=== PATIENT | female | born 1985 | race African-American/Black ===

== ENCOUNTER 2022-05-04 19:33 | Inpatient (IN) | payer MEDICAID, OTHER ==
[~2022-05-04] VITALS: Ht 175.3 cm; Wt 119.1 kg
[2022-05-04 20:07] LABS: BASOPHILS % (AUTO) 0.9 % (0.0-2.0); EOSINOPHILS % (AUTO) 0.7 % (1.0-6.0); HEMATOCRIT 35.2 % (36-46); HEMOGLOBIN 11.1 g/dL (12.0-16.0); LYMPHOCYTES # (AUTO) 4.3 K/uL (1.0-4.8); LYMPHOCYTES % (AUTO) 27.2 % (22.0-44.0); MEAN CORPUSCULAR HEMOGLOBIN 20.8 pg (26.0-34.0); MEAN CORPUSCULAR HGB CONC 31.7 G/dL (31.0-37.0); MEAN CORPUSCULAR VOLUME 66 fL (80-100); MONOCYTES # (AUTO) 0.9 K/uL (0.1-1.0); MONOCYTES % (AUTO) 5.6 % (2.0-9.0); NEUTROPHILS # (AUTO) 10.4 K/uL (1.8-7.7); NEUTROPHILS % (AUTO) 65.6 % (40.0-70.0); PLATELET COUNT (AUTO) 281 K/uL (150-450); RED BLOOD CELL COUNT(AUTO) 5.36 MIL/uL (4.00-5.20)
[2022-05-04 20:14] LABS: ANION GAP 10 mmol/L (8-16); CALCIUM, TOTAL 9.7 mg/dL (8.8-10.5); CARBON DIOXIDE 26 mmol/L (22-29); CHLORIDE 103 mmol/L (98-107); CREATININE 0.89 mg/dL (0.60-1.30); GLOMERULAR FILTR. RATE CALC > 60 mL/min (>60); GLUCOSE,RANDOM 162 mg/dL (70-110); POTASSIUM 3.7 mmol/L (3.5-5.1); SODIUM SERUM 139 mmol/L (136-145); UREA NITROGEN, BLOOD 9 mg/dL (7-18)
[2022-05-04 20:16] LABS: AMPHET/METH SCREEN,URINE NEGATIVE (NEGATIVE); BARBITURATE SCREEN, URINE NEGATIVE (NEGATIVE); BENZODIAZEPINES SCREEN,URINE NEGATIVE (NEGATIVE); CANNABINOID SCREEN,URINE NEGATIVE (NEGATIVE); COCAINE SCREEN,URINE NEGATIVE (NEGATIVE); METHADONE SCREEN, URINE NEGATIVE (NEGATIVE); OPIATE SCREEN,URINE NEGATIVE (NEGATIVE)
[2022-05-04 20:18] LABS: PHENCYCLIDINE SCREEN,URINE NEGATIVE (NEGATIVE)
[2022-05-04 20:22] LABS: ALANINE AMINOTRANSFERASE 27 U/L (12-78); ALBUMIN 3.9 g/dL (3.4-5.0); ALKALINE PHOSPHATASE 80 U/L (46-116); ASPARTATE AMINOTRANSFERASE 13 U/L (15-37); BILIRUBIN,TOTAL 0.4 mg/dL (0.1-1.0)
[2022-05-05 00:34] LABS: COVID AG,FIA SOURCE NASAL SWAB
[2022-05-05 00:42] LABS: APPEARANCE,URINE CLEAR (CLEAR); BILIRUBIN,URINE NEGATIVE (NEGATIVE); GLUCOSE, URINE (UA) NEGATIVE (NEGATIVE); KETONES,URINE NEGATIVE (NEGATIVE); LEUKOCYTE ESTERASE ,URINE NEGATIVE (NEGATIVE); NITRATE,URINE NEGATIVE (NEGATIVE); OCCULT BLOOD,URINE NEGATIVE (NEGATIVE); PH,URINE 5.5 (5.0-8.0); PROTEIN,URINE NEGATIVE (NEGATIVE); SPECIFIC GRAVITIY, URINE 1.004 (1.003-1.030); UROBILINOGEN,URINE <=1.0 mg/dL (<=1.0)
[2022-05-05 02:55] VITALS: BP 140/80
[2022-05-05 03:07] VITALS: BP 140/80
[2022-05-05 03:18] VITALS: BP 140/80
[2022-05-05] MEDS ORDERED: LOPERAMIDE HCL 2 MG CAPSULE PO PRN (06:30)
[2022-05-05] MEDS ORDERED: ACETAMINOPHEN 325 MG TABLET PO PRN (06:30)
[2022-05-05] MEDS ORDERED: PETROLATUM,WHITE 28 GM JELLY TP PRN (06:30)
[2022-05-05] MEDS ORDERED: ONDANSETRON HCL 4 MG TABLET PO PRN (06:30)
[2022-05-05] MEDS ORDERED: DOCUSATE SODIUM 100 MG CAPSULE PO PRN (06:30)
[2022-05-05] MEDS ORDERED: MAG HYDROX/AL HYDROX/SIMETH ES 30 ML SUSPENSION UDCUP PO PRN (06:30)
[2022-05-05] MEDS ORDERED: GuaiFENesin/D-METHORPHAN [SUGAR-FREE] 200-20MG/10 ML SYRUP UDCUP PO PRN (06:30)
[2022-05-05] MEDS ORDERED: NICOTINE 14 MG/24 HOUR PATCH TD PRN (06:30)
[2022-05-05] MEDS ORDERED: MAGNESIUM HYDROXIDE SUSPENSION 30 ML UDCUP PO PRN (06:30)
[2022-05-05] MEDS ORDERED: CloNIDine HCL 0.1 MG TABLET PO PRN (06:30)
[2022-05-05] MEDS ORDERED: ALBUTEROL SULFATE HFA 90 MCG/PUFF 8 GM INHALER IH PRN (06:30)
[2022-05-05] MEDS: MetFORMIN HCL 500 MG TABLET PO SCH ×2 (06:59→17:11)
[2022-05-05 08:26] VITALS: BP 106/60
[2022-05-05 08:27] VITALS: BP 106/60
[2022-05-05] MEDS: IBUPROFEN 400 MG TABLET PO PRN (09:39)
[2022-05-05] MEDS: LORazepam 2 MG TABLET PO PRN (09:40)
[2022-05-05] MEDS: HALOPERIDOL 5 MG TABLET PO PRN (09:40)
[2022-05-05 16:09] VITALS: BP 133/72
[2022-05-05] MEDS: DIVALPROEX SODIUM 500 MG DR TABLET PO SCH (17:08)
[2022-05-05] MEDS: LURASIDONE HCL 60 MG TABLET PO SCH (17:08)
[2022-05-05 18:46] LABS: GLUCOMETER DEV NAME(LOC) 3E.I 2; GLUCOSE,POINT OF CARE 153 MG/DL (70-110)
[2022-05-06] MEDS: MetFORMIN HCL 500 MG TABLET PO SCH ×2 (06:46→16:35)
[2022-05-06] MEDS: LURASIDONE HCL 60 MG TABLET PO SCH ×2 (06:46→16:09)
[2022-05-06 07:01] LABS: GLUCOMETER DEV NAME(LOC) 3E.C; GLUCOSE,POINT OF CARE 134 MG/DL (70-110)
[2022-05-06 08:20] VITALS: BP 130/69
[2022-05-06] MEDS: LORazepam 2 MG TABLET PO PRN (09:23)
[2022-05-06] MEDS: HALOPERIDOL 5 MG TABLET PO PRN (09:23)
[2022-05-06] MEDS: DIVALPROEX SODIUM 500 MG DR TABLET PO SCH ×2 (09:23→16:09)
[2022-05-06 09:35] LABS: HEMOGLOBIN A1C 6.4 % (3.8-5.6)
[2022-05-06 09:46] LABS: CHOL/HDL RATIO 6.3 (3.9-5.7); THYROID STIMULATING HORMONE 1.22 uIU/mL (0.36-3.74)
[2022-05-06] MEDS ORDERED: HALOPERIDOL DECANOATE 100 MG/ML VIAL IM ONE (10:00)
[2022-05-06 16:10] VITALS: BP 127/84
[2022-05-06 16:56] LABS: GLUCOMETER DEV NAME(LOC) 3E.C; GLUCOSE,POINT OF CARE 220 MG/DL (70-110)
[2022-05-06 23:02] VITALS: BP 170/107
[2022-05-06] MEDS: IBUPROFEN 400 MG TABLET PO PRN (23:03)
[2022-05-06] MEDS: ZOLPIDEM TARTRATE 10 MG TABLET PO PRN (23:03)
[2022-05-07] MEDS: LURASIDONE HCL 60 MG TABLET PO SCH ×2 (06:50→16:43)
[2022-05-07] MEDS: MetFORMIN HCL 500 MG TABLET PO SCH ×2 (06:50→16:43)
[2022-05-07 06:51] LABS: GLUCOMETER DEV NAME(LOC) 3E.C; GLUCOSE,POINT OF CARE 121 MG/DL (70-110)
[2022-05-07 08:00] VITALS: BP 131/92
[2022-05-07] MEDS: LORazepam 2 MG TABLET PO PRN ×2 (08:38→16:44)
[2022-05-07] MEDS: DIVALPROEX SODIUM 500 MG DR TABLET PO SCH ×2 (08:38→16:43)
[2022-05-07] MEDS: HALOPERIDOL 5 MG TABLET PO PRN ×2 (08:38→16:44)
[2022-05-07 16:11] LABS: GLUCOMETER DEV NAME(LOC) 3E.C; GLUCOSE,POINT OF CARE 165 MG/DL (70-110)
[2022-05-07 16:52] VITALS: BP 140/91
[2022-05-08] MEDS: LURASIDONE HCL 60 MG TABLET PO SCH ×2 (06:44→16:39)
[2022-05-08] MEDS: MetFORMIN HCL 500 MG TABLET PO SCH ×2 (06:44→16:40)
[2022-05-08 06:46] LABS: GLUCOMETER DEV NAME(LOC) 3E.C; GLUCOSE,POINT OF CARE 129 MG/DL (70-110)
[2022-05-08 08:00] VITALS: BP 139/85
[2022-05-08] MEDS: HALOPERIDOL 5 MG TABLET PO PRN ×2 (08:15→16:40)
[2022-05-08] MEDS: DIVALPROEX SODIUM 500 MG DR TABLET PO SCH ×2 (08:15→16:39)
[2022-05-08] MEDS: LORazepam 2 MG TABLET PO PRN ×2 (08:15→16:40)
[2022-05-08 16:00] VITALS: BP 119/69
[2022-05-08 16:16] LABS: GLUCOMETER DEV NAME(LOC) 3E.C; GLUCOSE,POINT OF CARE 145 MG/DL (70-110)
[2022-05-09 06:21] LABS: GLUCOMETER DEV NAME(LOC) 3E.C; GLUCOSE,POINT OF CARE 123 MG/DL (70-110)
[2022-05-09] MEDS: MetFORMIN HCL 500 MG TABLET PO SCH ×2 (06:31→16:36)
[2022-05-09] MEDS: LURASIDONE HCL 60 MG TABLET PO SCH ×2 (06:31→16:36)
[2022-05-09 08:29] VITALS: BP 143/99
[2022-05-09] MEDS: LORazepam 2 MG TABLET PO PRN ×2 (08:40→16:36)
[2022-05-09] MEDS: HALOPERIDOL 5 MG TABLET PO PRN ×2 (08:40→16:36)
[2022-05-09] MEDS: DIVALPROEX SODIUM 500 MG DR TABLET PO SCH ×2 (08:41→16:36)
[2022-05-09] MEDS: IBUPROFEN 400 MG TABLET PO PRN (09:24)
[2022-05-09 16:11] LABS: GLUCOMETER DEV NAME(LOC) 3E.C; GLUCOSE,POINT OF CARE 123 MG/DL (70-110)
[2022-05-09 16:51] VITALS: BP 144/94
[2022-05-10 06:26] LABS: GLUCOMETER DEV NAME(LOC) 3E.C; GLUCOSE,POINT OF CARE 136 MG/DL (70-110)
[2022-05-10] MEDS: MetFORMIN HCL 500 MG TABLET PO SCH ×2 (07:03→18:14)
[2022-05-10] MEDS: LURASIDONE HCL 60 MG TABLET PO SCH ×2 (07:03→18:14)
[2022-05-10 07:16] LABS: COVID AG,FIA SOURCE NASAL SWAB
[2022-05-10 08:33] VITALS: BP 145/91
[2022-05-10] MEDS: DIVALPROEX SODIUM 500 MG DR TABLET PO SCH ×2 (09:09→16:15)
[2022-05-10] MEDS: LORazepam 2 MG TABLET PO PRN (13:26)
[2022-05-10] MEDS: HALOPERIDOL 5 MG TABLET PO PRN (13:26)
[2022-05-10 16:11] LABS: GLUCOMETER DEV NAME(LOC) 3E.C; GLUCOSE,POINT OF CARE 108 MG/DL (70-110)
[2022-05-10 16:21] VITALS: BP 163/96
[2022-05-10] MEDS: ZOLPIDEM TARTRATE 10 MG TABLET PO PRN (20:11)
[2022-05-11 06:16] LABS: GLUCOMETER DEV NAME(LOC) 3E.C; GLUCOSE,POINT OF CARE 140 MG/DL (70-110)
[2022-05-11 06:23] LABS: BASOPHILS % (AUTO) 0.8 % (0.0-2.0); EOSINOPHILS % (AUTO) 1.6 % (1.0-6.0); HEMATOCRIT 37.3 % (36-46); HEMOGLOBIN 11.7 g/dL (12.0-16.0); LYMPHOCYTES # (AUTO) 4.2 K/uL (1.0-4.8); LYMPHOCYTES % (AUTO) 32.7 % (22.0-44.0); MEAN CORPUSCULAR HEMOGLOBIN 20.8 pg (26.0-34.0); MEAN CORPUSCULAR HGB CONC 31.3 G/dL (31.0-37.0); MEAN CORPUSCULAR VOLUME 67 fL (80-100); MONOCYTES # (AUTO) 0.8 K/uL (0.1-1.0); MONOCYTES % (AUTO) 6.6 % (2.0-9.0); NEUTROPHILS # (AUTO) 7.5 K/uL (1.8-7.7); NEUTROPHILS % (AUTO) 58.3 % (40.0-70.0); PLATELET COUNT (AUTO) 288 K/uL (150-450); RED BLOOD CELL COUNT(AUTO) 5.61 MIL/uL (4.00-5.20); RED CELL DISTRIBUTION WIDTH 16.9 % (11.5-14.5)
[2022-05-11] MEDS: MetFORMIN HCL 500 MG TABLET PO SCH ×2 (06:48→17:30)
[2022-05-11] MEDS: LURASIDONE HCL 60 MG TABLET PO SCH ×2 (06:49→17:30)
[2022-05-11] MEDS: LORazepam 2 MG TABLET PO PRN ×2 (07:54→15:59)
[2022-05-11] MEDS: HALOPERIDOL 5 MG TABLET PO PRN ×2 (07:54→15:59)
[2022-05-11] MEDS: DIVALPROEX SODIUM 500 MG DR TABLET PO SCH ×2 (07:55→16:36)
[2022-05-11 08:07] VITALS: BP 157/93
[2022-05-11 16:11] LABS: GLUCOMETER DEV NAME(LOC) 3E.C; GLUCOSE,POINT OF CARE 113 MG/DL (70-110)
[2022-05-11 16:30] VITALS: BP 146/93
[2022-05-11 16:33] VITALS: BP 146/89
[2022-05-12 06:12] LABS: GLUCOMETER DEV NAME(LOC) 3E.C; GLUCOSE,POINT OF CARE 142 MG/DL (70-110)
[2022-05-12] MEDS: LURASIDONE HCL 60 MG TABLET PO SCH ×2 (07:04→17:23)
[2022-05-12] MEDS: MetFORMIN HCL 500 MG TABLET PO SCH ×2 (07:04→17:30)
[2022-05-12] MEDS: HALOPERIDOL 5 MG TABLET PO PRN ×2 (08:20→15:58)
[2022-05-12] MEDS: DIVALPROEX SODIUM 500 MG DR TABLET PO SCH ×2 (08:20→15:58)
[2022-05-12 08:55] VITALS: BP 150/87
[2022-05-12] MEDS: LORazepam 2 MG TABLET PO PRN ×2 (10:22→17:24)
[2022-05-12 16:04] VITALS: BP 149/86
[2022-05-12 16:35] LABS: GLUCOMETER DEV NAME(LOC) 3E.C; GLUCOSE,POINT OF CARE 132 MG/DL (70-110)
[2022-05-12] MEDS: ZOLPIDEM TARTRATE 10 MG TABLET PO PRN (22:49)
[2022-05-13] MEDS: MetFORMIN HCL 500 MG TABLET PO SCH ×2 (07:03→17:46)
[2022-05-13] MEDS: LURASIDONE HCL 60 MG TABLET PO SCH ×2 (07:03→17:46)
[2022-05-13 07:11] LABS: GLUCOMETER DEV NAME(LOC) 3E.C; GLUCOSE,POINT OF CARE 137 MG/DL (70-110)
[2022-05-13 08:00] VITALS: BP 131/85
[2022-05-13] MEDS: LORazepam 2 MG TABLET PO PRN ×2 (09:17→15:38)
[2022-05-13] MEDS: DIVALPROEX SODIUM 500 MG DR TABLET PO SCH ×2 (09:17→16:25)
[2022-05-13] MEDS: HALOPERIDOL 5 MG TABLET PO PRN ×2 (09:17→15:38)
[2022-05-13 16:11] LABS: GLUCOMETER DEV NAME(LOC) 3E.C; GLUCOSE,POINT OF CARE 160 MG/DL (70-110)
[2022-05-13 16:41] VITALS: BP 147/83
[2022-05-14 06:46] LABS: GLUCOMETER DEV NAME(LOC) 3E.C; GLUCOSE,POINT OF CARE 149 MG/DL (70-110)
[2022-05-14] MEDS: MetFORMIN HCL 500 MG TABLET PO SCH (07:04)
[2022-05-14] MEDS: LURASIDONE HCL 60 MG TABLET PO SCH (07:04)
[2022-05-14] MEDS: HALOPERIDOL 5 MG TABLET PO PRN (08:28)
[2022-05-14] MEDS: LORazepam 2 MG TABLET PO PRN (08:28)
[2022-05-14] MEDS: DIVALPROEX SODIUM 500 MG DR TABLET PO SCH ×2 (08:28→16:21)
[2022-05-14] MEDS ORDERED: LURA60TA PO (11:46)
[2022-05-14] MEDS ORDERED: DIVA-112 PO (11:46)
[2022-05-14] MEDS ORDERED: METF-1211 PO (15:21)
[2022-05-14] MEDS ORDERED: HALOPERIDOL DECANOATE 100 MG/ML VIAL IM SCH (15:45)
[2022-05-14] MEDS ORDERED: HALO100V36 IM (15:56)
[2022-05-14 16:41] VITALS: BP 145/92
[2022-05-14 16:41] LABS: GLUCOMETER DEV NAME(LOC) 3E.C; GLUCOSE,POINT OF CARE 155 MG/DL (70-110)
== END 2022-05-14 17:00 | DRG 750 ==
LOC: EMS 19:36 → 3EC 05-05 01:37
PROVIDERS: ADMIT Psychiatry & Neurology Child & Adolescent Psychiatry; ATTEND Psychiatry & Neurology Child & Adolescent Psychiatry
DX: F20.9 Schizophrenia, unspecified (principal); D64.9 Anemia, unspecified; F41.9 Anxiety disorder, unspecified; E11.65 Type 2 diabetes mellitus with hyperglycemia; D72.829 Elevated white blood cell count, unspecified; Z20.822 Contact with and (suspected) exposure to COVID-19; Z88.0 Allergy status to penicillin
CPT/HCPCS: 80053; 80061; 81003; 82962; 83036; 84443; 85025; 87081; 99285; G0480; J1631; Q9967

== ENCOUNTER 2024-04-14 20:56 | Inpatient (IN) | payer MEDICAID, OTHER ==
[~2024-04-14] VITALS: Ht 175.3 cm; Wt 105.8 kg
[~2024-04-14 20:56] MED LIST: DIVA-112 PO; HALO100V36 IM; LURA60TA PO; METF-1211 PO
[2024-04-14] MEDS ORDERED: TRAZ-257 PO (21:22)
[2024-04-14] MEDS ORDERED: GABA-1201 PO (21:22)
[2024-04-14] MEDS ORDERED: BENZ-247 PO (21:22)
[2024-04-14] MEDS ORDERED: VALP250S23 PO (21:22)
[2024-04-14] MEDS ORDERED: DOCU-412 PO (21:22)
[2024-04-14 21:31] LABS: COVID AG,FIA SOURCE NASAL SWAB
[2024-04-14 21:34] LABS: BASOPHILS % (AUTO) 0.9 % (0.0-2.0); EOSINOPHILS % (AUTO) 1.1 % (1.0-6.0); HEMATOCRIT 35.6 % (36-46); HEMOGLOBIN 11.2 g/dL (12.0-16.0); LYMPHOCYTES # (AUTO) 4.8 K/uL (1.0-4.8); LYMPHOCYTES % (AUTO) 42.4 % (22.0-44.0); MEAN CORPUSCULAR HEMOGLOBIN 22.5 pg (26.0-34.0); MEAN CORPUSCULAR HGB CONC 31.6 G/dL (31.0-37.0); MEAN CORPUSCULAR VOLUME 71 fL (80-100); MONOCYTES # (AUTO) 1.2 K/uL (0.1-1.0); MONOCYTES % (AUTO) 10.4 % (2.0-9.0); NEUTROPHILS # (AUTO) 5.1 K/uL (1.8-7.7); NEUTROPHILS % (AUTO) 45.2 % (40.0-70.0); PLATELET COUNT (AUTO) 203 K/uL (150-450); RED BLOOD CELL COUNT(AUTO) 4.99 MIL/uL (4.00-5.20); RED CELL DISTRIBUTION WIDTH 16.8 % (11.5-14.5); WHITE BLOOD COUNT (AUTO) 11.4 K/uL (4.5-11.0)
[2024-04-14 21:42] LABS: ANION GAP 7 mmol/L (8-16); CALCIUM, TOTAL 9.6 mg/dL (8.8-10.5); CARBON DIOXIDE 29 mmol/L (22-29); CHLORIDE 104 mmol/L (98-107); CREATININE 0.96 mg/dL (0.60-1.30); GLOMERULAR FILTR. RATE CALC > 60 mL/min (>60); GLUCOSE,RANDOM 142 mg/dL (70-110); POTASSIUM 4.3 mmol/L (3.5-5.1); SODIUM SERUM 140 mmol/L (136-145); UREA NITROGEN, BLOOD 10 mg/dL (7-18)
[2024-04-14 21:48] LABS: ALANINE AMINOTRANSFERASE 29 U/L (12-78); ALBUMIN 3.1 g/dL (3.4-5.0); ALKALINE PHOSPHATASE 48 U/L (46-116); ASPARTATE AMINOTRANSFERASE 25 U/L (15-37); BILIRUBIN,TOTAL 0.2 mg/dL (0.1-1.0); TOTAL PROTEIN, SERUM 7.4 g/dL (6.4-8.2)
[2024-04-14 21:51] LABS: SARS-COV2 (COVID) ANTIGEN,FIA Negative (Negative)
[2024-04-14 21:52] LABS: HCG,QUANTITATIVE < 1 mIU/mL (0-6); VALPROIC ACID 87 mcg/mL (50-100)
[2024-04-14 22:12] LABS: ALCOHOL, BLOOD (SERUM) < 3 mg/dL (0-10)
[2024-04-14 22:17] LABS: RBC MORPHOLOGY COMMENT ABNORMAL RBC MORPH
[2024-04-14] MEDS ORDERED: ZOLPIDEM TARTRATE 5 MG TABLET PO PRN (23:15)
[2024-04-15 02:14] LABS: APPEARANCE,URINE CLEAR (CLEAR); BILIRUBIN,URINE NEGATIVE (NEGATIVE); COLOR,URINE COLORLESS (YELLOW); GLUCOSE, URINE (UA) NEGATIVE (NEGATIVE); KETONES,URINE NEGATIVE (NEGATIVE); LEUKOCYTE ESTERASE ,URINE NEGATIVE (NEGATIVE); NITRATE,URINE NEGATIVE (NEGATIVE); OCCULT BLOOD,URINE NEGATIVE (NEGATIVE); PROTEIN,URINE NEGATIVE (NEGATIVE); SPECIFIC GRAVITIY, URINE 1.007 (1.003-1.030); UROBILINOGEN,URINE <=1.0 mg/dL (<=1.0)
[2024-04-15 02:21] LABS: ALCOHOL, URINE DRUG SCREEN NEGATIVE (NEGATIVE); AMPHET/METH SCREEN,URINE NEGATIVE (NEGATIVE); BARBITURATE SCREEN, URINE NEGATIVE (NEGATIVE); BENZODIAZEPINES SCREEN,URINE NEGATIVE (NEGATIVE); CANNABINOID SCREEN,URINE NEGATIVE (NEGATIVE); COCAINE SCREEN,URINE NEGATIVE (NEGATIVE); METHADONE SCREEN, URINE NEGATIVE (NEGATIVE); OPIATE SCREEN,URINE NEGATIVE (NEGATIVE); PHENCYCLIDINE SCREEN,URINE NEGATIVE (NEGATIVE)
[2024-04-15] MEDS: ChlorproMAZINE HCL 100 MG TABLET PO PRN (03:12)
[2024-04-15] MEDS: LORazepam 2 MG TABLET PO PRN (03:12)
[2024-04-15 03:17] VITALS: BP 118/64; PULSE 82; RESP 18; TEMP 97.9; O2SAT 98
[2024-04-15] MEDS: OLANZapine 5 MG RAPDIS TABLET PO SCH (08:09)
[2024-04-15] MEDS: GABAPENTIN 400 MG CAPSULE PO SCH (08:09)
[2024-04-15 08:27] VITALS: RESP 18
[2024-04-15] MEDS ORDERED: PETROLATUM,WHITE 28 GM JELLY TP PRN (13:30)
[2024-04-15] MEDS ORDERED: GLUCAGON,HUMAN RECOMBINANT 1 MG VIAL IM PRN (13:30)
[2024-04-15] MEDS ORDERED: MAG HYDROX/ALUMINUM HYD/SIMETH ES 30 ML SUSPENSION UDCUP PO PRN (13:30)
[2024-04-15] MEDS ORDERED: DOCUSATE SODIUM 100 MG CAPSULE PO PRN (13:30)
[2024-04-15] MEDS ORDERED: MAGNESIUM HYDROXIDE SUSPENSION 30 ML UDCUP PO PRN (13:30)
[2024-04-15] MEDS ORDERED: BENZOCAINE/MENTHOL LOZENGE PO PRN (13:30)
[2024-04-15] MEDS ORDERED: ACETAMINOPHEN 325 MG TABLET PO PRN (13:30)
[2024-04-15] MEDS ORDERED: ONDANSETRON HCL 4 MG TABLET PO PRN (13:30)
[2024-04-15] MEDS ORDERED: CloNIDine HCL 0.1 MG TABLET PO PRN (13:30)
[2024-04-15] MEDS ORDERED: LOPERAMIDE HCL 2 MG CAPSULE PO PRN (13:30)
[2024-04-15] MEDS ORDERED: ALBUTEROL SULFATE HFA 90 MCG/PUFF 8 GM INHALER IH PRN (13:30)
[2024-04-15] MEDS ORDERED: OMEPRAZOLE 20 MG CAPSULE PO PRN (13:30)
[2024-04-15] MEDS ORDERED: BACITRACIN 28 GM OINTMENT TP PRN (13:30)
[2024-04-15] MEDS: MetFORMIN HCL 500 MG TABLET PO SCH (16:47)
[2024-04-15 17:16] LABS: GLUCOMETER DEV NAME(LOC) BV3S.; GLUCOSE,POINT OF CARE 132 MG/DL (70-110)
[2024-04-15] MEDS: MELATONIN 5 MG TABLET PO SCH (20:15)
[2024-04-15] MEDS: DIVALPROEX SODIUM 500 MG ER TABLET PO SCH (20:15)
[2024-04-15 20:35] VITALS: BP 137/72; PULSE 86; TEMP 97.3; O2SAT 98
[2024-04-15 21:06] LABS: GLUCOMETER DEV NAME(LOC) BV3S.; GLUCOSE,POINT OF CARE 140 MG/DL (70-110)
[2024-04-16 06:51] LABS: GLUCOMETER DEV NAME(LOC) BV3S.; GLUCOSE,POINT OF CARE 123 MG/DL (70-110)
[2024-04-16 08:41] VITALS: RESP 18
[2024-04-16] MEDS ORDERED: GuaiFENesin/D-METHORPHAN [SUGAR-FREE] 200-20MG/10 ML SYRUP UDCUP PO PRN (08:45)
[2024-04-16] MEDS ORDERED: HydrOXYzine PAMOATE 50 MG CAPSULE PO PRN (08:45)
[2024-04-16] MEDS: MULTIVITAMINS WITH MINERALS, THERAPEUTIC TABLET PO SCH (10:55)
[2024-04-16] MEDS: FOLIC ACID 1 MG TABLET PO SCH (10:55)
[2024-04-16] MEDS: THIAMINE 100 MG TABLET PO SCH (10:55)
[2024-04-16] MEDS: INSULIN LISPRO 100 UNITS/ML SQ PRN (12:00)
[2024-04-16 12:16] LABS: GLUCOMETER DEV NAME(LOC) BV3S.; GLUCOSE,POINT OF CARE 185 MG/DL (70-110)
[2024-04-16 17:20] LABS: GLUCOMETER DEV NAME(LOC) BV3S.; GLUCOSE,POINT OF CARE 131 MG/DL (70-110)
[2024-04-16 21:17] VITALS: BP 151/88; PULSE 115; TEMP 97.5; O2SAT 99
[2024-04-17 06:11] LABS: GLUCOMETER DEV NAME(LOC) BV3S.; GLUCOSE,POINT OF CARE 129 MG/DL (70-110)
[2024-04-17 08:20] VITALS: BP 145/92; PULSE 92; RESP 16; TEMP 98.1; O2SAT 97
[2024-04-17 12:11] LABS: GLUCOMETER DEV NAME(LOC) BV3S.; GLUCOSE,POINT OF CARE 149 MG/DL (70-110)
[2024-04-17] MEDS ORDERED: HALOPERIDOL LACTATE 5 MG/ML VIAL IM PRN (14:15)
[2024-04-17 16:51] LABS: GLUCOMETER DEV NAME(LOC) BV3S.; GLUCOSE,POINT OF CARE 256 MG/DL (70-110)
[2024-04-17 20:16] VITALS: BP 132/74; PULSE 86; TEMP 97.2; O2SAT 96
[2024-04-17 21:55] LABS: GLUCOMETER DEV NAME(LOC) BV3S.; GLUCOSE,POINT OF CARE 176 MG/DL (70-110)
[2024-04-18 06:35] LABS: GLUCOMETER DEV NAME(LOC) BV3S.; GLUCOSE,POINT OF CARE 138 MG/DL (70-110)
[2024-04-18 08:47] VITALS: BP 129/77; PULSE 81; RESP 17; TEMP 97.3; O2SAT 92
[2024-04-18 12:00] LABS: GLUCOMETER DEV NAME(LOC) BV3S.; GLUCOSE,POINT OF CARE 125 MG/DL (70-110)
[2024-04-18] MEDS ORDERED: GABA-1201 PO (15:12)
[2024-04-18] MEDS ORDERED: OMEG-135 PO (15:12)
[2024-04-18] MEDS ORDERED: OLAN5TAB94 PO (15:12)
[2024-04-18] MEDS ORDERED: MELA5TAB40 PO (15:12)
[2024-04-18] MEDS ORDERED: DIVA500T69 PO (15:12)
[2024-04-18 16:41] LABS: GLUCOMETER DEV NAME(LOC) BV3S.; GLUCOSE,POINT OF CARE 156 MG/DL (70-110)
[2024-04-19 04:48] VITALS: BP 135/88; PULSE 88; RESP 18; TEMP 97.6; O2SAT 99
[2024-04-19 07:05] LABS: GLUCOMETER DEV NAME(LOC) BV3S.; GLUCOSE,POINT OF CARE 138 MG/DL (70-110)
[2024-04-19 08:34] VITALS: BP 123/78; PULSE 76; RESP 16; TEMP 98; O2SAT 99
[2024-04-19] MEDS ORDERED: GABA-1201 PO (10:21)
[2024-04-19] MEDS ORDERED: DIVA-153 PO (10:21)
[2024-04-19] MEDS ORDERED: OLAN10TA26 PO (10:22)
[2024-04-19 12:00] LABS: GLUCOMETER DEV NAME(LOC) BV3S.; GLUCOSE,POINT OF CARE 200 MG/DL (70-110)
[2024-04-19 21:23] VITALS: BP 125/79; PULSE 100; RESP 17; TEMP 97.5; O2SAT 98
[2024-04-20 06:40] LABS: GLUCOMETER DEV NAME(LOC) BV3S.; GLUCOSE,POINT OF CARE 137 MG/DL (70-110)
[2024-04-20 10:14] VITALS: BP 137/72; PULSE 92; RESP 18; TEMP 97.1; O2SAT 97
[2024-04-20 16:51] LABS: GLUCOMETER DEV NAME(LOC) BV3S.; GLUCOSE,POINT OF CARE 148 MG/DL (70-110)
[2024-04-20 20:04] VITALS: BP 127/81; PULSE 86; RESP 17; TEMP 97.7
[2024-04-21 08:49] VITALS: BP 156/90; PULSE 90; RESP 16; TEMP 97.1; O2SAT 99
[2024-04-21 12:21] LABS: GLUCOMETER DEV NAME(LOC) BV3S.; GLUCOSE,POINT OF CARE 203 MG/DL (70-110)
[2024-04-21 17:46] LABS: GLUCOMETER DEV NAME(LOC) BV3S.; GLUCOSE,POINT OF CARE 156 MG/DL (70-110)
[2024-04-21 20:27] VITALS: BP 153/59; PULSE 99; RESP 16; TEMP 97.3; O2SAT 96
[2024-04-22 06:10] LABS: GLUCOMETER DEV NAME(LOC) BV3S.; GLUCOSE,POINT OF CARE 152 MG/DL (70-110)
[2024-04-22] MEDS ORDERED: ZOLPIDEM TARTRATE 5 MG TABLET PO PRN (07:00)
[2024-04-22] MEDS ORDERED: LORazepam 2 MG TABLET PO PRN (07:00)
[2024-04-22 12:56] LABS: GLUCOMETER DEV NAME(LOC) BV3S.; GLUCOSE,POINT OF CARE 126 MG/DL (70-110)
[2024-04-22 15:30] VITALS: RESP 16
[2024-04-22 22:15] VITALS: BP 166/116; PULSE 92; RESP 20; TEMP 97.6
[2024-04-23 06:26] LABS: GLUCOMETER DEV NAME(LOC) BV3S.; GLUCOSE,POINT OF CARE 140 MG/DL (70-110)
[2024-04-23 08:20] VITALS: PULSE 83; RESP 16; TEMP 97.9; O2SAT 98
[2024-04-23 20:11] VITALS: RESP 18
[2024-04-23] MEDS: IBUPROFEN 600 MG TABLET PO PRN (20:11)
[2024-04-23 20:25] VITALS: RESP 18
[2024-04-23 21:11] VITALS: RESP 17
[2024-04-24 21:29] VITALS: BP 160/97; PULSE 82; RESP 16; TEMP 97.2; O2SAT 98
[2024-04-25 08:42] VITALS: BP 113/84; PULSE 75; RESP 16; TEMP 97.5; O2SAT 98
[2024-04-25 20:14] VITALS: BP 135/89; PULSE 86; RESP 17; TEMP 97.8; O2SAT 100
[2024-04-26 08:48] VITALS: BP 135/88; PULSE 76; RESP 17; TEMP 97.6; O2SAT 97
[2024-04-26 18:09] VITALS: RESP 18
[2024-04-26 21:19] VITALS: BP 136/79; PULSE 89; RESP 18; TEMP 97.7
[2024-04-27 08:23] VITALS: BP 118/74; PULSE 84; RESP 18; TEMP 98.2; O2SAT 99
[2024-04-27 21:08] VITALS: BP 135/100; PULSE 94; RESP 18; TEMP 97.6; O2SAT 99
[2024-04-28 08:02] VITALS: BP 130/88; PULSE 78; RESP 18; TEMP 97.8
[2024-04-28 20:00] VITALS: RESP 18
[2024-04-29 06:20] LABS: GLUCOMETER DEV NAME(LOC) BV3S.; GLUCOSE,POINT OF CARE 121 MG/DL (70-110)
[2024-04-29 09:00] VITALS: RESP 17
[2024-04-29 21:57] VITALS: BP 141/91; PULSE 79; RESP 18; TEMP 97.1
[2024-04-30 08:22] VITALS: BP 100/56; PULSE 83; RESP 16; TEMP 97.9; O2SAT 97
[2024-04-30 20:57] VITALS: BP 143/74; PULSE 87; TEMP 97.3; O2SAT 99
[2024-05-01 08:09] VITALS: RESP 16
[2024-05-01 20:43] VITALS: BP 138/80; PULSE 93; RESP 16; TEMP 97.6; O2SAT 100
[2024-05-02 08:25] VITALS: RESP 16
[2024-05-02 20:47] VITALS: BP 149/93; PULSE 78; RESP 16; TEMP 97.5; O2SAT 100
[2024-05-03 08:25] VITALS: BP 134/79; PULSE 79; RESP 16; TEMP 97.6; O2SAT 100
[2024-05-03 20:12] VITALS: BP 155/87; PULSE 73; RESP 16; TEMP 97.3; O2SAT 99
[2024-05-04 09:13] VITALS: BP 137/89; PULSE 78; RESP 18; TEMP 97.5; O2SAT 98
== END 2024-05-04 18:38 | DRG 750 ==
LOC: EMS 20:56 → B3A 04-15 01:00
PROVIDERS: ADMIT Psychiatry & Neurology Psychiatry; ATTEND Psychiatry & Neurology Psychiatry
PROC: GZ56ZZZ Individual Psychotherapy, Supportive (ICD-10-PCS; 2024-04-16)
PROC: GZHZZZZ Group Psychotherapy (ICD-10-PCS; principal; 2024-04-30)
DX: F20.0 Paranoid schizophrenia (principal); E11.9 Type 2 diabetes mellitus without complications; F32.A Depression, unspecified; G47.00 Insomnia, unspecified; F41.9 Anxiety disorder, unspecified; K59.00 Constipation, unspecified; K21.9 Gastro-esophageal reflux disease without esophagitis; Z20.822 Contact with and (suspected) exposure to COVID-19; E66.9 Obesity, unspecified; Z74.01 Bed confinement status; Z68.34 Body mass index [BMI] 34.0-34.9, adult; Z79.84 Long term (current) use of oral hypoglycemic drugs; Z79.899 Other long term (current) drug therapy; Z88.0 Allergy status to penicillin
CPT/HCPCS: 80053; 80164; 80307; 81003; 82962; 83036; 84702; 85025; 87481; G0480; Q9967